=== PATIENT | male | born 1955 | race Caucasian/White ===

== ENCOUNTER 2018-03-31 21:54 | Emergency (ER) | payer SELFPAY ==
--- NOTE | 2018-03-31 21:56 | EDPHY ---
H & P Time Seen by Provider: 03/31/18 21:55 Constitutional: Initial Vital Signs Temperature (C) 36.6 C 03/31/18 22:00 Heart Rate 95 03/31/18 22:00 Respiratory Rate 18 03/31/18 22:00 Blood Pressure 159/94 H 03/31/18 22:00 O2 Sat (%) 96 03/31/18 22:00 O2 Delivery Mode Room Air Medical Decision Making ED Course/Re-evaluation: CHIEF COMPLAINT: Psychiatric evaluation HISTORY OF PRESENT ILLNESS: The patient is a 63 y/o male arriving in [employer] on an M1 hold for suicidal ideations. [employer] were called by the patients after he left his belongings at home and made suicidal statements. [employer] was able to find the patient after he made suicidal statements. He stated he wanted to advertising dispatch clerk front of traffic or a train and kill himself. He reports that he has had suicidal ideations for the last 10 months and seeing a mental health provider has not helped his suicidal ideations. Denies homicidal ideations. No headache, chest pain, shortness of breath, abdominal pain, urinary or bowel complaints, numbness, paresthesias. REVIEW OF SYSTEMS: A comprehensive 10 system review of systems is otherwise negative aside from elements mentioned in the history of present illness and medical decision making. PHYSICAL EXAM: General Appearance: Alert, well hydrated, appropriate, and non-toxic appearing. Head: Atraumatic without scalp tenderness or obvious injury Eyes: Pupils equal, round, reactive to light and accommodation, EOMI, no trauma , no injection. Ears: Clear bilaterally, no perforation, normal landmarks Nose: Atraumatic, no rhinorrhea, clear. Throat: There is no erythema or exudates, no lesions, normal tonsils, mucus membranes moist. Neck: Supple, 2+ carotid upstroke, nontender, no lymphadenopathy. Respiratory: No retractions, no distress, no wheezes, and no accessory muscle use. Lungs are clear to auscultation bilaterally. Cardiovascular: Regular rate and rhythm, no murmurs, rubs, or gallops. Bilateral carotid, radial, dorsalis pedis, and posterior tibial pulses intact. Good capillary refill all extremities. Gastrointestinal: Abdomen is soft, nontender, non-distended, no masses, no rebound, no guarding, no peritoneal signs. Musculoskeletal: Normal active ROM of all extremities, atraumatic. Neurological: Alert, appropriate, and interactive. The patient has normal DTRs and non-focal cranial nerves, motor, sensory, and cerebellar exam. Skin: No rashes, good turgor, no nodules on palpation. Psych: Expresses suicidal ideations. Flat affect. Past medical history: Depression Past surgical history: Denies Family history: Denies Social history: , lives in [place], retired DIFFERENTIAL DIAGNOSIS: The differential diagnosis for the patient's depression included but was not limited to functional and major depression, situational depression, medication side effect, drugs, and alcohol abuse. MEDICAL DECISION MAKING: The patient is a 63 y/o male arriving in [place] [employer] on an M1 hold for suicidal ideations. He is denying laboratory studies at this time. Patient is in no acute distress and is hemodynamically stable. We are awaiting psychiatric team's evaluation. Patient has known history of psychiatric disorders and is here for evaluation. 1004: Patient signed out to Dr. Bolden at shift change. (Sanjeev Bhakta) Other Provider: [address] Bhakta pending mental health evaluation. 0700 patient signed out to Dr. Storm pending mental health evaluation. No issues during my care this patient overnight. (Ricky Bolden) 7:35 a.m. the patient has been evaluated by Mental Health. They will lift his hold. He is not suicidal. He will follow up with her marriage counselor. He and his are currently in contact with him by phone. (Surendra Storm) - Data Points Laboratory Results: Laboratory Results 03/31/18 22:07 03/31/18 22:07 03/31/18 03/31/18 03/31/18 22:07 22:07 22:07 WBC 7.26 10^3/uL 10^3/uL (3.80-9.50) RBC 6.30 10^6/uL 10^6/uL (4.40-6.38) Hgb 16.8 g/dL g/dL (13.7-17.5) Hct 51.4 % H % (40.0-51.0) MCV 81.6 fL fL (81.5-99.8) MCH 26.7 pg L pg (27.9-34.1) MCHC 32.7 g/dL g/dL (32.4-36.7) RDW 14.8 % % (11.5-15.2) Plt Count 221 10^3/uL 10^3/uL (150-400) MPV 10.7 fL fL (8.7-11.7) Neut % (Auto) 71.1 % % (39.3-74.2) Lymph % (Auto) 16.1 % % (15.0-45.0) Wallace % (Auto) 8.7 % % (4.5-13.0) Eos % (Auto) 3.2 % % (0.6-7.6) Baso % (Auto) 0.8 % % (0.3-1.7) Nucleat RBC Rel Count 0.0 % % (0.0-0.2) Absolute Neuts (auto) 5.16 10^3/uL 10^3/uL (1.70-6.50) Absolute Lymphs (auto) 1.17 10^3/uL 10^3/uL (1.00-3.00) Absolute Monos (auto) 0.63 10^3/uL 10^3/uL (0.30-0.80) Absolute Eos (auto) 0.23 10^3/uL 10^3/uL (0.03-0.40) Absolute Basos (auto) 0.06 10^3/uL 10^3/uL (0.02-0.10) Absolute Nucleated RBC 0.00 10^3/uL 10^3/uL (0-0.01) Immature Gran % 0.1 % % (0.0-1.1) Immature Gran # 0.01 10^3/uL 10^3/uL (0.00-0.10) Sodium 138 mEq/L mEq/L (135-145) Potassium 3.7 mEq/L mEq/L (3.3-5.0) Chloride 105 mEq/L mEq/L (97-110) Carbon Dioxide 25 mEq/l mEq/l (22-31) Anion Gap 8 mEq/L mEq/L (6-14) BUN 17 mg/dL mg/dL (7-23) Creatinine 1.2 mg/dL mg/dL (0.7-1.3) Estimated GFR > 60 Glucose 112 mg/dL H mg/dL (70-100) Calcium 9.2 mg/dL mg/dL (8.5-10.4) Total Bilirubin 0.6 mg/dL mg/dL (0.1-1.4) AST 20 IU/L IU/L (17-59) ALT 28 IU/L IU/L (21-72) Alkaline Phosphatase 117 IU/L IU/L (38-126) Total Protein 7.1 g/dL g/dL (6.3-8.2) Albumin 4.3 g/dL g/dL (3.5-5.0) Salicylates < 1.0 mg/dL L mg/dL (2.0-20.0) Urine Opiates Screen NEGATIVE (NEGATIVE) Acetaminophen < 10 mcg/mL L mcg/mL (10-30) Urine Barbiturates NEGATIVE (NEGATIVE) Ur Phencyclidine Scrn NEGATIVE (NEGATIVE) Ur Amphetamine Screen NEGATIVE (NEGATIVE) U Benzodiazepines Scrn NEGATIVE (NEGATIVE) Urine Cocaine Screen NEGATIVE (NEGATIVE) U Marijuana (THC) Screen NEGATIVE (NEGATIVE) Ethyl Alcohol < 10 mg/dL mg/dL (0-10) Departure - Departure Disposition: Home, Routine, Self-Care Clinical Impression: Situational depression Condition: Good Instructions: Depression (ED) Referrals: NONE *PRIMARY CARE P,. [Primary Care Provider] - As per Instructions Report Scribed for: Sanjeev Bhakta Report Scribed by: Kendy Leonard Date of Report: 03/31/18 Time of Report: 21:56
[2018-03-31 22:47] LABS: PLATELET COUNT 221 10^3/uL (150-400)
[2018-04-01 07:42] VITALS: BP 143/94
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
--- NOTE | 2018-04-01 09:57 | ASMTTCLDSP ---
TLC Discharge Disposition Disposition: Answers: Discharge If Answers: Yes DISCHARGED: Patient/family given suicide hotline info & SAMHSA brochure? Disposition Notes: Notes: Pt stated commitment or ability to keep self safe, denied thoughts of self harm or harm to others. Pt expressed a desire to f/u with their marital therapist, Surendra Zepeda appointment next Friday04/08/18. Pt was given local hotline information and SAMHSA brochure After an Attempt and encouraged to follow up with marital therapist. Discharge Concerns/Recommendations: Notes: In consultation with [facility] ED physician, Surendra Storm MD, Dr. Storm concurred that pt does not appear to meet 27-65 criteria requiring psychiatric hospitalization as pt does not appear to be an imminent risk of harm to self/others/gravely disabled due to a mental illness condition. Dr. Storm provided verbal order read back vacating M1 hold at 0745 hrs. Was patient given the Answers: Not applicable Inpatient Behavioral Health Prohibited Belongings List while in the ED? Psychiatrist vacating M1 Surendra Storm MD Hold: Date and time M1 hold 04/01/2018 07:45 AM vacated (time format is hh:mm): Type of Hold: Answers: M1/72-hour Hold Hold initiated by: Answers: Police Date Signed: 04/01/2018 09:56 AM Electronically Signed By:Reinaldo Olea
== END 2018-04-01 07:47 | disposition home or self-care (01) ==
DX: R45.851 Suicidal ideations (principal); F32.9 Major depressive disorder, single episode, unspecified
CPT/HCPCS: 80305; G0480